=== PATIENT | male | born 2000 | race Two or more races ===

== ENCOUNTER 2024-07-05 01:00 | Emergency (ER) | payer OTHER, SELFPAY ==
[2024-07-05 01:01] VITALS: BMI 21.9
[2024-07-05 01:07] VITALS: BP 107/64
--- NOTE | 2024-07-05 01:17 | ED.GENMED ---
History of Present Illness
General
Chief Complaint: Cough
Source: patient
Exam Limitations: none
Time Seen by Provider: 07/05/24 01:14
History of Present Illness
History of Present Illness:
See MDM
Past History
Past History
ED Past Medical History: None
ED Past Surgical History: None
Social History
Tobacco: Non-smoker
Alcohol: None
Phy Exam
Physical Exam
Physical Exam:
See MDM
Course
Orders/Labs/Results
Orders:
Orders
07/05/24 01:17
CR Chest - 2 Views Urgent
Comment:
Reason For Exam: cough
07/05/24 02:03
Azithromycin [Zithromax] 500 mg PO NOW STA
Dexamethasone Pf [Decadron] 10 mg PO NOW STA
Vital Signs
Initial and Last Documented VS:
Initial Vital Signs
Temp Pulse Resp BP Pulse Ox
97.8 F 63 18 107/64 100
07/05/24 01:07 07/05/24 01:07 07/05/24 01:07 07/05/24 01:07 07/05/24 01:07
Last Documented Vital Signs
Temp Pulse Resp BP Pulse Ox
97.8 F 63 18 114/72 97
07/05/24 01:07 07/05/24 01:07 07/05/24 01:07 07/05/24 01:35 07/05/24 02:01
MDM/Problems Addressed
Differential Diagnosis Includes:
HPI and MDM Narrative:
24-year-old male presenting with 1 week of cough. This is associated with intermittent fevers. His mother also is sick. He is unconcerned about COVID. Patient states the cough is gotten so bad. He denies sick contacts otherwise. Patient is in
no acute distress
Physical exam
General: Well appearing and non-toxic
HEENT: protecting airway. Posterior pharynx clear
Neck: appears supple
CV: No evidence of cyanosis
Resp: No accessory muscle use. Lungs clear
Abd: Non-distended
Extremities: No deformities
Neuro: alert
Psych: Normal affect
Skin: Intact
Problems Addressed including Acute and Chronic Conditions affecting care:
1. Cough
Acuity: acute
Prognosis: stable
Details: Given persistent symptoms, will obtain x-ray rule out pneumonia
Updates
Chest x-ray clear. Will treat with 1 dose of Decadron and will start azithromycin for presumed bronchitis
Differential Diagnosis (but not limited to): Viral syndrome, pneumonia
Testing considered: COVID testing but patient declined
Drug therapy (if applicable): OTC meds, please see d/c instruction regarding Rx drugs
Amount and/or Complexity of Data Reviewed
Clinical info obtained from: Patient
External data reviewed: N/A
Labs I independently reviewed (but not limited to): N/A
Radiology: X-ray independently reviewed: Chest x-ray clear
Pulse Ox: not hypoxic
EKG independently reviewed: N/A
Poultry Buyer: N/A
Critical Care: N/A
Risk of Complication:
Social Determinants of health: Good social support
Discussed with other providers: N/A
Escalation of Care includes Admit/Obs: After being observed in the Emergency Department, pt stable for discharge.
Occasional wrong word or 'sound a like' substitutions may have occurred due to the inherent limitations of voice recognition software. Read the chart carefully and recognize, using context, where substitutions have occurred.
*Critical Care Note
Total Time (30-74mins, 75-104mins- exclusive of procedures): Not Applicable
ED Attending Note
-
Portions of this chart may have been created with voice recognition software.� Occasional wrong word or��sound alike� substitutions may have occurred due to the inherent limitations of voice recognition software.
Discharge Plan
Departure
Patient Disposition: Home (Routine Discharge)
Date of Disposition: 07/05/24
Time of Disposition: 02:04
Patient with high blood pressure during this ER visit?: No
Discharge Problem:
Bronchitis
Instructions: Acute Bronchitis, Adult (DC)
Prescriptions:
New
azithromycin 250 mg tablet
250 mg PO DAILY 4 Days Qty: 4 0RF
Referrals:
NONE,* [Family Provider] -
Activity Restrictions/Additional Instructions:
Please return for any worsening symptoms.
You may return at any time if you have further concerns.
Please follow up with your doctor at the first available appointment, preferably this week.
Thank you for choosing [facility].
Interventions
Interventions:
*Risk Screen - Suicide Last Done: 07/05/24 01:59
*General Assessment Last Done: 07/05/24 01:57
*Neglect/Abuse Screening Last Done: 07/05/24 01:59
*ED COVID-19 Vaccine History Last Done: 07/05/24 01:57
ED- Pulmonary Assessment Last Done: 07/05/24 02:01
Discharge Date and Time
Print Language: [place]
[2024-07-05 01:35] VITALS: BP 114/72
[2024-07-05] MEDS: ZITHROMAX 500 MG PO (02:10)
[2024-07-05] MEDS: DECADRON 10 MG PO (02:11)
== END 2024-07-05 02:22 | disposition home or self-care (01) ==
LOC: EMR 01:00
PROVIDERS: EMERGENCY PHYSICIAN Student in an Organized Health Care Education/Training Program
DX: J40 Bronchitis, not specified as acute or chronic (principal)
CPT/HCPCS: 99283; 71046